=== PATIENT | male | born 1995 | race Caucasian/White ===

== ENCOUNTER 2019-04-29 15:54 | Emergency (ER) | payer BC ==
[2019-04-29] MEDS: IBUPROFEN 600 MG TAB PO (17:03)
[2019-04-29] MEDS: DIPHTH/TET/ACEL PERTUSS (ADULT) 0.5 ML VIAL IM* (17:04)
== END 2019-04-29 18:15 | disposition home or self-care (01) ==
LOC: FTE 15:54
DX: S61.213A Laceration without foreign body of left middle finger without damage to nail, initial encounter (principal); W31.2XXA Contact with powered woodworking and forming machines, initial encounter; Y92.9 Unspecified place or not applicable; Z23 Encounter for immunization
CPT/HCPCS: 12001; 90471; 90715; 99283-25